=== PATIENT | male | born 1970 | race Caucasian/White ===

== ENCOUNTER 2017-07-18 11:19 | Emergency (ER) | END 2017-07-18 12:58 | disposition home or self-care (01) ==

== ENCOUNTER 2017-12-08 17:54 | Emergency (ER) | END 2017-12-08 22:20 | disposition home or self-care (01) ==

== ENCOUNTER 2018-02-24 23:19 | Emergency (ER) | END 2018-02-25 05:13 | disposition home or self-care (01) ==